=== PATIENT | male | born 1995 | race Two or more races ===

== ENCOUNTER 2024-08-01 23:00 | Emergency (ER) | payer OTHER ==
[~2024-08-01] VITALS: Ht 175.3 cm; Wt 159.0 kg
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
[2024-08-01] MEDS: HYDROcodone-ACET 5/325MG TAB PO ONE (23:53)
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
[2024-08-02] MEDS ORDERED: IBU600T PO (00:51)
[2024-08-02 01:00] VITALS: BP 150/98; PULSE 76; RESP 16; TEMP 98.3; O2SAT 97
== END 2024-08-02 01:00 | disposition home or self-care (01) ==
LOC: ER 23:00
DX: R07.89 Other chest pain (principal); M79.10 Myalgia, unspecified site; S80.11XA Contusion of right lower leg, initial encounter; V43.52XA Car driver injured in collision with other type car in traffic accident, initial encounter; Y93.I9 Activity, other involving external motion; Y92.488 Other paved roadways as the place of occurrence of the external cause; Y99.8 Other external cause status
CPT/HCPCS: 71101; 73590